=== PATIENT | female | born 1975 | race Caucasian/White ===

== ENCOUNTER 2018-01-13 17:32 | Emergency (ER) | payer OTHER ==
[2018-01-13] MEDS: IBUPROFEN 800 MG TAB PO (20:15)
== END 2018-01-13 22:41 | disposition home or self-care (01) ==
LOC: FTE 17:32
DX: S82.001A Unspecified fracture of right patella, initial encounter for closed fracture (principal); W22.8XXA Striking against or struck by other objects, initial encounter; Y92.89 Other specified places as the place of occurrence of the external cause
CPT/HCPCS: 29505; 73562; 99283-25